=== PATIENT | female | born 1935 | race Caucasian/White ===

== ENCOUNTER 2017-09-21 13:36 | Emergency (ER) | payer MEDICARE, OTHER ==
[~2017-09-21] VITALS: Ht 170.2 cm; Wt 75.0 kg
[~2017-09-21 13:36] MED LIST: ATOR20TA PO; DIGO0.12 PO; LASI20TA PO; LISI2.5T55 PO; METO50TA PO; PERC5TAB12 PO; POTA20IN3 PO; RIVA20 PO
[2017-09-21 13:40] VITALS: BP 115/63; PULSE 72; RESP 16; TEMP 98.9; O2SAT 97
[2017-09-21] MEDS ORDERED: ASPI-516 CHEW (13:59)
[2017-09-21] MEDS ORDERED: LISI2.5T3 PO (13:59)
[2017-09-21] MEDS ORDERED: FURO40TA PO (13:59)
[2017-09-21] MEDS ORDERED: DIGO0.12 PO (13:59)
[2017-09-21] MEDS ORDERED: XARE10TA PO (13:59)
[2017-09-21] MEDS ORDERED: POTA-255 PO (13:59)
[2017-09-21] MEDS ORDERED: METO50TA PO (13:59)
--- NOTE | 2017-09-21 14:35 | PD ---
HPI Chief Complaint: Skin Problem Time Seen by Provider: 14:27 Travel History International Travel<30 days: No Contact w/Intl Traveler<30days: No Traveled to known affect area: No History of Present Illness HPI 82-year-old female presents emergency department with very painful vesicular rash which started on her right lower trunk and has spread around to her abdomen since yesterday morning. Patient states she never had chickenpox as a child, or the measles. She denies fever, cough, chills, or other symptoms. Her biggest complaint is pain which is 9 out of 10. She denies nausea or vomiting or abdominal pain. Patient has no known drug allergies. PFSH Past Medical History Hx Anticoagulant Therapy: Yes (XARELTO) Cancer: No Cardiovascular Problems: Yes Congestive Heart Failure: Yes Cerebrovascular Accident: Yes (2007) Diminished Hearing: No Endocrine: No Genitourinary: Yes Hypertension: Yes Immune Disorder: No Musculoskeletal: No Neurologic: Yes Psychiatric: No Reproductive: No Respiratory: Yes Menopausal: Yes Past Surgical History Other Surgery: No Social History Alcohol Use: Yes (SOCIAL) Tobacco Use: No Substance Use: No Allergies-Medications (Allergen,Severity, Reaction): Coded Allergies: No Known Allergies (Unverified , 05/25/15) Reported Meds & Prescriptions Reported Meds & Active Scripts Active Reported Xarelto (Rivaroxaban) 10 Mg Tab 10 Mg PO DAILY Aspirin 81 Mg Chew 81 Mg CHEW DAILY Metoprolol Tartrate 50 Mg Tab 50 Mg PO BID Lisinopril 2.5 Mg Tab 2.5 Mg PO DAILY Potassium (Potassium Gluconate) 600 Mg (99 Mg) Tablet 1 Tab PO HS Furosemide 40 Mg Tab 40 Mg PO DAILY Digoxin 0.125 Mg Tab 0.125 Mg PO DAILY Review of Systems Except as stated in HPI: all other systems reviewed are Neg General / Constitutional: No: Fever Eyes: No: Visual changes HENT: No: Headaches Cardiovascular: No: Chest Pain or Discomfort Respiratory: No: Shortness of Breath Gastrointestinal: No: Abdominal Pain Genitourinary: No: Dysuria Musculoskeletal: Positive: Pain Skin: Positive Rash Neurologic: No: Weakness Psychiatric: No: Depression Endocrine: No: Polydipsia Hematologic/Lymphatic: No: Easy Bruising Physical Exam Narrative GENERAL: Patient appears moderately uncomfortable. SKIN: Warm and dry. Generally the patient's skin is normal in color and turgor. Patient has angry erythematous vesicular rash in the T10 distribution wrapping around to the abdomen below the umbilicus. This is consistent with herpes zoster. There is no sign of bacterial cellulitis. HEAD: Atraumatic. Normocephalic. EYES: Pupils equal and round. No scleral icterus. No injection or drainage. ENT: No nasal bleeding or discharge. Mucous membranes pink and moist. TMs are clear. Pharynx is clear. Airways patent. NECK: Trachea midline. Supple and nontender. CARDIOVASCULAR: Regular rate and rhythm. RESPIRATORY: No accessory muscle use. Clear to auscultation. Breath sounds equal bilaterally. GASTROINTESTINAL: Abdomen soft, non-tender, nondistended. Hepatic and splenic margins not palpable. MUSCULOSKELETAL: Extremities without clubbing, cyanosis, or edema. No obvious deformities. NEUROLOGICAL: Awake and alert. No obvious cranial nerve deficits. Motor grossly within normal limits. Five out of 5 muscle strength in the arms and legs. Normal speech. PSYCHIATRIC: Appropriate mood and affect; insight and judgment normal. Data Data Last Documented VS Vital Signs Date Time Temp Pulse Resp B/P (MAP) Pulse Ox O2 Delivery O2 Flow Rate FiO2 09/21/17 13:40 98.9 72 16 115/63 (80) 97 MDM Medical Decision Making Medical Screen Exam Complete: Yes Emergency Medical Condition: Yes Differential Diagnosis Painful rash. Shingles. Cellulitis. Narrative Course Patient will be treated with Valtrex 1000 mg twice daily 7 days. Patient is placed on gabapentin 100 mg 3 times daily for 2 weeks. Patient is given Mapap 500 mg 2 tabs every 6 hours as needed pain #80. Patient can Place Caladryl lotion on the rash itself which may help soothe it. Patient should follow-up with her primary care physician to ensure improvement, or return to the emergency department if worsening symptoms develop Diagnosis Primary Impression: Shingles outbreak Qualified Codes: B02.9 - Zoster without complications Referrals: Primary Care Physician 1 week Patient Instructions: General Instructions, Shingles (ED) Med/Other Pt SpecificInfo: Prescription(s) given Disposition: 01 DISCHARGE HOME Condition: Stable Glenroy Newman Sep 21, 2017 14:35
[2017-09-21] MEDS ORDERED: GABA100C4 PO (14:37)
[2017-09-21] MEDS ORDERED: VALT1TAB PO (14:37)
[2017-09-21] MEDS ORDERED: MAPA500T13 PO (14:37)
== END 2017-09-21 14:50 | disposition home or self-care (01) ==
LOC: NEPK 13:36
DX: B02.9 Zoster without complications (principal); I11.0 Hypertensive heart disease with heart failure; I50.9 Heart failure, unspecified; Z79.01 Long term (current) use of anticoagulants
CPT/HCPCS: 99283

== ENCOUNTER 2017-10-15 12:46 | Emergency (ER) | payer MEDICARE, OTHER ==
[~2017-10-15] VITALS: Ht 170.2 cm; Wt 76.0 kg
[~2017-10-15 12:46] MED LIST changes: +ASPI-516 CHEW; -ATOR20TA PO; +FURO40TA PO; +GABA100C4 PO; -LASI20TA PO; +LISI2.5T3 PO; -LISI2.5T55 PO; +MAPA500T13 PO; -PERC5TAB12 PO; +POTA-255 PO; -POTA20IN3 PO; -RIVA20 PO; +VALT1TAB PO; +XARE10TA PO
[2017-10-15 13:01] VITALS: BP 125/59; PULSE 69; RESP 18; TEMP 97.5; O2SAT 96
[2017-10-15 13:30] LABS: AUTOMATED NEUTROPHIL # 3.9 TH/MM3 (1.8-7.7); BASOPHIL % 0.6 % (0.0-2.0); EOSINOPHIL # 0.1 TH/MM3 (0-0.4); EOSINOPHIL % 0.8 % (0.0-4.0); HEMATOCRIT 37.1 % (35.0-46.0); LYMPH % 28.9 % (9.0-44.0); LYMPHOCYTE # 1.8 TH/MM3 (1.0-4.8); MEAN CELL VOLUME 91.1 FL (80.0-100.0); MEAN CORPUSCULAR HEMOGLOBIN 31.9 PG (27.0-34.0); MEAN PLATELET VOLUME 8.2 FL (7.0-11.0); MONO % 8.1 % (0.0-8.0); MONOCYTE # 0.5 TH/MM3 (0-0.9); NEUT % 61.6 % (16.0-70.0); PLATELET COUNT 247 TH/MM3 (150-450); RED BLOOD COUNT 4.07 MIL/MM3 (4.00-5.30); WHITE BLOOD COUNT 6.4 TH/MM3 (4.0-11.0)
--- NOTE | 2017-10-15 13:45 | RADRPT ---
EXAM DATE/TIME: 10/15/2017 13:28 [facility] COMPARISON: CHEST SINGLE AP, May 25, 2015, 12:15. INDICATIONS : Shortness of breath for one day. MEDICAL HISTORY : None. SURGICAL HISTORY : CABG. ENCOUNTER: Initial ACUITY: 1 day PAIN SCORE: 0/10 LOCATION: Bilateral chest FINDINGS: Stable postsurgical features of median sternotomy and cardiac surgery. No new focal pleural or parenc hymal opacities. Cardiomediastinal contours are within normal limits. Bony thorax is intact. CONCLUSION: 1. No acute cardiopulmonary disease. Arsalan Montenegro MD on October 15, 2017 at 13:42 Board Certified Radiologist. This report was verified electronically.
[2017-10-15 13:48] LABS: BICARBONATE 23.5 MEQ/L (21.0-32.0); BLOOD UREA NITROGEN 19 MG/DL (7-18); CALCIUM 8.8 MG/DL (8.5-10.1); CHLORIDE 99 MEQ/L (98-107); CREATININE 1.17 MG/DL (0.50-1.00); GLOMERULAR FILTRATION RATE 44 ML/MIN (>89); GLUCOSE,RANDOM 102 MG/DL (74-106); SODIUM (NA) 132 MEQ/L (136-145)
[2017-10-15 13:52] LABS: TROPONIN I LESS THAN 0.02 NG/ML (0.02-0.05)
[2017-10-15 13:56] VITALS: BP 139/71; PULSE 72; RESP 22; O2SAT 100
--- NOTE | 2017-10-15 14:09 | PD ---
HPI Chief Complaint: Chest Pain Time Seen by Provider: 13:51 Travel History International Travel<30 days: No Contact w/Intl Traveler<30days: No Traveled to known affect area: No History of Present Illness HPI Patient is an 7-year-old female presenting to the emergency department for evaluation of chest pain. Patient states she woke up with a feeling of pins sticking into her chest wall. She reports feeling slightly short of breath, worse with exertion. She states she has been dealing with shingles for 1 month now, since then she has had a decreased appetite. She also reports feeling constipated having small, hard bowel movements over the last month. She took Ex -Lax last night and states she feels as if she has to go today. She denies any abdominal pain. Brother is present and states she has been worried about drinking water that could have been contaminated. He states that her fears are unfounded. PFSH Past Medical History Hx Anticoagulant Therapy: Yes (XARELTO) Atrial Fibrillation: Yes High Cholesterol: Yes Congestive Heart Failure: Yes Cerebrovascular Accident: Yes (2007) Genitourinary: Yes Hypertension: Yes Neurologic: Yes (tia) Respiratory: Yes Menopausal: Yes Past Surgical History Other Surgery: No Social History Alcohol Use: Yes (SOCIAL) Tobacco Use: No Substance Use: No Allergies-Medications (Allergen,Severity, Reaction): Coded Allergies: No Known Allergies (Unverified Adverse Reaction, Unknown, 10/15/17) Reported Meds & Prescriptions Reported Meds & Active Scripts Active Mapap Extra Strength (Acetaminophen) 500 Mg Tab 1,000 Mg PO Q4-6H PRN Gabapentin 100 Mg Cap 100 Mg PO TID 14 Days Reported Xarelto (Rivaroxaban) 10 Mg Tab 10 Mg PO DAILY Aspirin 81 Mg Chew 81 Mg CHEW DAILY Metoprolol Tartrate 50 Mg Tab 50 Mg PO BID Lisinopril 2.5 Mg Tab 2.5 Mg PO DAILY Potassium (Potassium Gluconate) 600 Mg (99 Mg) Tablet 1 Tab PO HS Furosemide 40 Mg Tab 40 Mg PO DAILY Digoxin 0.125 Mg Tab 0.125 Mg PO DAILY Review of Systems Except as stated in HPI: all other systems reviewed are Neg Cardiovascular: Positive: Chest Pain or Discomfort Respiratory: Positive: Shortness of Breath Gastrointestinal: Positive: Constipation Skin: Positive Rash Physical Exam Narrative GENERAL: Well-developed, well-nourished, alert elderly female. Presenting in no acute distress. SKIN: Warm and dry. Hyperpigmented, healing rash to right back around to abdomen, rash does not cross the midline. No vesicular lesions noted. HEAD: Atraumatic. Normocephalic. EYES: Pupils equal and round. No scleral icterus. No injection or drainage. ENT: No nasal bleeding or discharge. Mucous membranes pink and moist. NECK: Trachea midline. No JVD. CARDIOVASCULAR: Regular rate and rhythm. RESPIRATORY: No accessory muscle use. Clear to auscultation. Breath sounds equal bilaterally. GASTROINTESTINAL: Abdomen soft, non-tender, nondistended. Hepatic and splenic margins not palpable. Positive bowel sounds, no rebound, no guarding. MUSCULOSKELETAL: Extremities without clubbing, cyanosis, or edema. No obvious deformities. NEUROLOGICAL: Awake and alert. No obvious cranial nerve deficits. Motor grossly within normal limits. Five out of 5 muscle strength in the arms and legs. Normal speech. PSYCHIATRIC: Appropriate mood and affect; insight and judgment normal. Data Data Last Documented VS Vital Signs Date Time Temp Pulse Resp B/P (MAP) Pulse Ox O2 Delivery O2 Flow Rate FiO2 10/15/17 14:45 96 Room Air 10/15/17 13:56 72 22 10/15/17 13:01 97.5 Orders Orders Electrocardiogram (10/15/17 13:03) Complete Blood Count With Diff (10/15/17 13:03) Basic Metabolic Panel (Bmp) (10/15/17 13:03) Ckmb (Isoenzyme) Profile (10/15/17 13:03) Troponin I (10/15/17 13:03) Chest, Pa & Lat (10/15/17 ) B-Type Natriuretic Peptide (10/15/17 14:02) Digoxin (10/15/17 14:02) Abdomen, Kub Only (10/15/17 ) Ecg Monitoring (10/15/17 14:02) Oximetry (10/15/17 14:02) Sodium Chloride 0.9% Flush (Ns Flush) (10/15/17 14:15) Data Collection Interviewer / Telemetry [id number].[email or web address] (10/15/17 16:04) Vital Signs (Adult) Q4H (10/15/17 16:04) Activity Bed Rest (10/15/17 16:04) Notify Dr: Other (10/15/17 16:04) Labs Laboratory Tests Test 10/15/17 13:21 White Blood Count 6.4 TH/MM3 Red Blood Count 4.07 MIL/MM3 Hemoglobin 13.0 GM/DL Hematocrit 37.1 % Mean Corpuscular Volume 91.1 FL Mean Corpuscular Hemoglobin 31.9 PG Mean Corpuscular Hemoglobin Concent 35.0 % Red Cell Distribution Width 14.0 % Platelet Count 247 TH/MM3 Mean Platelet Volume 8.2 FL Neutrophils (%) (Auto) 61.6 % Lymphocytes (%) (Auto) 28.9 % Monocytes (%) (Auto) 8.1 % Eosinophils (%) (Auto) 0.8 % Basophils (%) (Auto) 0.6 % Neutrophils # (Auto) 3.9 TH/MM3 Lymphocytes # (Auto) 1.8 TH/MM3 Monocytes # (Auto) 0.5 TH/MM3 Eosinophils # (Auto) 0.1 TH/MM3 Basophils # (Auto) 0.0 TH/MM3 CBC Comment DIFF FINAL Differential Comment Blood Urea Nitrogen 19 MG/DL Creatinine 1.17 MG/DL Random Glucose 102 MG/DL Calcium Level 8.8 MG/DL Sodium Level 132 MEQ/L Potassium Level 4.1 MEQ/L Chloride Level 99 MEQ/L Carbon Dioxide Level 23.5 MEQ/L Anion Gap 10 MEQ/L Estimat Glomerular Filtration Rate 44 ML/MIN Total Creatine Kinase 53 U/L Troponin I LESS THAN 0.02 NG/ML B-Type Natriuretic Peptide 223 PG/ML Digoxin Level 0.8 NG/ML MDM Medical Decision Making Medical Screen Exam Complete: Yes Emergency Medical Condition: Yes Interpretation(s) Laboratory Tests Test 10/15/17 13:21 White Blood Count 6.4 TH/MM3 Red Blood Count 4.07 MIL/MM3 Hemoglobin 13.0 GM/DL Hematocrit 37.1 % Mean Corpuscular Volume 91.1 FL Mean Corpuscular Hemoglobin 31.9 PG Mean Corpuscular Hemoglobin Concent 35.0 % Red Cell Distribution Width 14.0 % Platelet Count 247 TH/MM3 Mean Platelet Volume 8.2 FL Neutrophils (%) (Auto) 61.6 % Lymphocytes (%) (Auto) 28.9 % Monocytes (%) (Auto) 8.1 % Eosinophils (%) (Auto) 0.8 % Basophils (%) (Auto) 0.6 % Neutrophils # (Auto) 3.9 TH/MM3 Lymphocytes # (Auto) 1.8 TH/MM3 Monocytes # (Auto) 0.5 TH/MM3 Eosinophils # (Auto) 0.1 TH/MM3 Basophils # (Auto) 0.0 TH/MM3 CBC Comment DIFF FINAL Differential Comment Blood Urea Nitrogen 19 MG/DL Creatinine 1.17 MG/DL Random Glucose 102 MG/DL Calcium Level 8.8 MG/DL Sodium Level 132 MEQ/L Potassium Level 4.1 MEQ/L Chloride Level 99 MEQ/L Carbon Dioxide Level 23.5 MEQ/L Anion Gap 10 MEQ/L Estimat Glomerular Filtration Rate 44 ML/MIN Total Creatine Kinase 53 U/L Troponin I LESS THAN 0.02 NG/ML B-Type Natriuretic Peptide 223 PG/ML Digoxin Level 0.8 NG/ML Vital Signs Date Time Temp Pulse Resp B/P (MAP) Pulse Ox O2 Delivery O2 Flow Rate FiO2 10/15/17 13:57 100 Room Air 10/15/17 13:56 72 22 139/71 (93) 100 Room Air 10/15/17 13:01 97.5 69 18 125/59 (81) 96 Differential Diagnosis ACS versus AMI versus metabolic abnormality versus anxiety versus constipation versus obstruction versus other Narrative Course Patient is an 82-year-old female presented to the emergency department with chest pain that started this morning upon awakening. She also reported that she is constipated. Patient's vital signs are stable, labs imaging ordered and pending. Initial EKG shows sinus rhythm with right bundle branch block. CBC with no acute findings, chemistry with no acute findings, cardiac enzymes negative 1 set. BNP is 223, digoxin 0.8. Chest x-ray shows no acute disease, KUB with nonobstructive bowel gas pattern. Due to patient's age and comorbidities, she will be admitted to the chest pain center. Patient was encouraged to trial MiraLAX daily, she was encouraged to increase oral fluid intake as well. Plan of care discussed my attending physician. Patient admit orders were placed. Discussed with patient, she stated that she did not want to be admitted because her insurance would not cover it. Patient was encouraged to stay to be completely evaluated. She continued to decline stay. Discussed with Dr. Todd who is patient's retail merchandiser technician, he stated that it she had 2 normal sets of enzymes at least 4 hours apart then she could follow- up in the office this week or early next week. Patient had a second set of cardiac enzymes which were negative, second EKG was reviewed and unchanged from prior. Patient was advised that she needs to follow-up with Dr. Todd. Her brother is at bedside and is aware of discharge instructions as well. She was encouraged to return immediately to the emergency department for any new or worsening symptoms. Patient is stable for discharge. Diagnosis Primary Impression: Chest pain Qualified Codes: R07.9 - Chest pain, unspecified Referrals: Gary Connell MD 2 days Call to schedule an appointment. Patient Instructions: Chest Pain (ED), General Instructions Additional Instructions: Follow-up with Dr. Todd in 2-3 days, call to schedule an appointment Return to emergency department immediately for any new or worsening symptoms Continue home medications as previously prescribed Med/Other Pt SpecificInfo: No Change to Meds Disposition: 01 DISCHARGE HOME Condition: Stable Gaviota Wagoner Faby LEPE Oct 15, 2017 14:09
[2017-10-15] MEDS ORDERED: SODIUM CHLORIDE 0.9% FLUSH 10 ML FLUSH IVF PRN (14:15)
[2017-10-15 14:45] VITALS: O2SAT 96
--- NOTE | 2017-10-15 14:51 | RADRPT ---
EXAM DATE/TIME: 10/15/2017 14:25 [facility] COMPARISON: No previous studies available for comparison. INDICATIONS : Abdominal distention. Evaluate for obstruction. MEDICAL HISTORY : Hypertension. Congestive heart failure. Cerebrovascular disease. TIA. Atrial fibrillation. SURGICAL HISTORY : CABG. ENCOUNTER: Initial ACUITY: 1 week PAIN SCORE: 4/10 LOCATION: Abdomen. FINDINGS: Supine view of the abdomen was performed. Air is seen throughout the colon. There no dilated loops of bowel. No significant pneumatosis or free air. No abnormal calcifications. The osseous structures ar e unremarkable. CONCLUSION: 1. Nonobstructive bowel gas pattern. Arsalan Montenegro MD on October 15, 2017 at 14:48 Board Certified Radiologist. This report was verified electronically.
[2017-10-15 18:32] LABS: TROPONIN I LESS THAN 0.02 NG/ML (0.02-0.05)
--- NOTE | 2017-10-16 14:04 | EKG ---
Date Performed: 10/15/2017 Time Performed: 17:31:52 PTAGE: 82 years EKG: Sinus rhythm RIGHT BUNDLE BRANCH BLOCK ANTERIOR MYOCARDIAL INFARCTION ABNORMAL ECG Since the PREVIOUS TRACING , no significant change noted PREVIOUS TRACIN10/15/2017 13.09 DOCTOR: Malgorzata Donnelly Interpretating Date/Time 10/16/2017 13:56:25
--- NOTE | 2017-10-16 14:05 | EKG ---
Date Performed: 10/15/2017 Time Performed: 13:09:38 PTAGE: 82 years EKG: Sinus rhythm MARKED RIGHT AXIS DEVIATION RIGHT BUNDLE BRANCH BLOCK ANTERIOR MYOCARDIAL INFARCTION ABNORMAL ECG Si nce the PREVIOUS TRACING , no significant change noted PREVIOUS TRACIN05/25/2015 12.00 DOCTOR: Malgorzata Donnelly Interpretating Date/Time 10/16/2017 13:56:32
== END 2017-10-15 19:27 | disposition home or self-care (01) ==
LOC: NEPE 12:46 → UNDOADMOB 16:05 → NEDA 16:05
DX: R07.9 Chest pain, unspecified (principal); K59.00 Constipation, unspecified; R06.02 Shortness of breath; I45.10 Unspecified right bundle-branch block; R94.31 Abnormal electrocardiogram [ECG] [EKG]; I48.91 Unspecified atrial fibrillation; I10 Essential (primary) hypertension; I50.9 Heart failure, unspecified; E78.00 Pure hypercholesterolemia, unspecified; Z79.01 Long term (current) use of anticoagulants; Z86.73 Personal history of transient ischemic attack (TIA), and cerebral infarction without residual deficits
CPT/HCPCS: 71046; 74018; 80048; 80162; 82550; 83880; 84484; 85025; 93005

== ENCOUNTER 2018-09-21 11:08 | Observation (INO) ==
--- NOTE | 2018-09-21 12:22 | ED ---
HPI General Chief complaint: Extremity Injury, Upper Stated complaint: shoulder pain Time Seen by Provider: 09/21/18 12:09 History of Present Illness HPI narrative: 83-year-old female with history of CHF, atrial fibrillation on Xarelto, hyperlipidemia, CVA, hypertension, presents with her brother for evaluation of syncopal event. The patient reports that yesterday evening she was walking in her hallway when she passed out. She woke up on the ground with right shoulder pain. Her primary complaint is right shoulder pain which is aching and worse with movement. She reports mild neck stiffness. She reports that she had 3 alcoholic beverages last night, uncertain if this has anything to do with her passing out. She is denying any headache, mid or lower back pain , chest pain, shortness of breath, abdominal pain, nausea, vomiting, dysuria. Her brother notes that she is chronically unsteady on her feet. She does not have a primary care physician. Her insulation cutter and former is Dr. Todd. No other complaints. Related Data Home Medications Medication Instructions Recorded Confirmed digoxin 0.125 mg PO DAILY 09/21/18 09/21/18 lisinopril 2.5 mg PO DAILY 09/21/18 09/21/18 metoprolol tartrate 50 mg PO BID 09/21/18 09/21/18 potassium chloride 20 meq PO DAILY 09/21/18 09/21/18 rivaroxaban [Xarelto] 20 mg PO DAILY 09/21/18 09/21/18 Allergies Allergy/AdvReac Type Severity Reaction Status Date / Time No Known Allergies Allergy Verified 09/21/18 11:29 Review of Systems ROS: all other systems reviewed are negative [facility] Medical History Medical History HBP (high blood pressure) (Acute) Hypokalemia (Acute) Surgical History Surgical History History of heart surgery (Acute) Social History Social History Substance History: No History of Abuse Second Hand Smoke Exposure: No Smoking Status: Never smoker How Often Do You Have a Drink Containing Alcohol: 2 to 4 times a month Recent Travel in [facility] within the Last 8 Weeks: No Recent Out of Country Travel within the Last 8 Weeks: No Immunization History Tetanus Immunization: >5 Years Exam Narrative Exam Narrative: GENERAL: Pleasant well-developed well-nourished female no acute distress SKIN: Warm and dry. HEAD: Atraumatic. Normocephalic. EYES: Pupils equal and round. No scleral icterus. No injection or drainage. ENT: No nasal bleeding or discharge. Mucous membranes pink and moist. NECK: Trachea midline. No JVD. CARDIOVASCULAR: Regular rate and rhythm. No murmur appreciated. RESPIRATORY: No accessory muscle use. Clear to auscultation. Breath sounds equal bilaterally. GASTROINTESTINAL: Abdomen soft, non-tender, nondistended. Hepatic and splenic margins not palpable. MUSCULOSKELETAL: Tender to palpation right shoulder joint with deformity. Range of motion is limited. No tenderness to palpation along the cervical thoracic or lumbar midline spine. NEUROLOGICAL: Awake and alert. No obvious cranial nerve deficits. Motor grossly within normal limits. Normal speech. Procedures Orthopedic Joint Reduction Joint #1: Time Out Performed: Yes Side: right Joint Reduction Location: shoulder Analgesia: procedural sedation Shoulder Technique Used (if applicable): traction/counter-traction Post-Reduction Neuro Exam: intact Post-Reduction Vascular Exam: intact Post Reduction X-Ray Obtained: Yes Post Reduction X-Ray Results: reduced Splint Applied: Yes Procedural Sedation Indications: fracture/dislocation reduction ASA Class: ASA 2 Moderate Systemic Disease Preparation: veneer production machine operator applied, pulse oximeter, capnometry used, supplemental O2 applied, reversal agents at bedside, suction/airway equipment at bedside and IV secured IV Propofol Dose (mgs): 100 Patient Tolerated Procedure: well Complications: none Course Initial Documented Vital Signs Temperature 98.0 F 09/21/18 11:17 Pulse Rate 92 H 09/21/18 11:17 Respiratory Rate 18 09/21/18 11:17 Blood Pressure 214/99 H 09/21/18 11:17 Pulse Oximetry 99 09/21/18 11:17 Last Documented Vital Signs Temperature 98.0 F 09/21/18 11:17 Pulse Rate 81 09/21/18 14:20 Respiratory Rate 14 09/21/18 14:20 Blood Pressure 152/80 H 09/21/18 14:20 Pulse Oximetry 98 09/21/18 14:20 Medical Decision Making BETO Attestation BETO supervised visit: Yes Attestation: I, Dr. Dale, have reviewed the advance practice practitioner's documentation and am in agreement, met with the patient face to face, made the diagnosis, and the medical decision making was done by me. *My assessment and Findings: This patient presents following a fall due to a syncopal event. She has a dislocation of her right shoulder. She is an ASA class II patient for anesthesia. Mallampatti score is 2. She will be sedated with propofol for reduction. [facility] Narrative Medical decision making narrative: The patient was placed on ECG monitoring pulse oximetry. A 12-lead EKG was obtained. Lab work, chest x-ray, right shoulder x-ray, CT imaging of the brain, cervical spine ordered. The patient was given 4 mg of morphine and 4 mg of Zofran. X-ray of the right shoulder reveals dislocated shoulder with Hill-Sachs lesion. Procedural sedation, reduction was performed, see company procedural notes. Postreduction x-ray reveals successful reduction of the shoulder. Sling and swath was applied. The patient's lab work reveals a total CK of 638, sodium of 131 and a chloride of 96. Patient has a history of congestive heart failure, she will be fluid replenished very slowly, 250 mL normal saline administered here. The patient will be admitted for further evaluation of her syncopal event. Discussed with Dr. Landers. Medical Screen Exam Complete: Yes Emergency Medical Condition: Yes Differential Diagnosis Differential Diagnosis: Arrhythmia, syncope, electrolyte abnormality, hypoglycemia, seizure, closed head injury, shoulder fracture, dislocation Lab Data Result diagrams: 09/21/18 12:30 09/21/18 12:30 Lab Results 09/21/18 09/21/18 09/21/18 Range/Units 12:30 12:30 12:30 WBC 10.6 (4.0-11.0) th/mm3 RBC 3.93 L (4.00-5.30) mil/mm3 Hgb 12.5 (11.6-15.3) gm/dL Hct 36.0 (35.0-46.0) % MCV 91.5 (80.0-100.0) fL MCH 31.8 (27.0-34.0) pg MCHC 34.8 (32.0-36.0) % RDW 13.7 (11.6-17.2) % Plt Count 211 (150-450) th/mm3 MPV 8.9 (7.0-11.0) fL Neut % (Auto) 86.9 H (16.0-70.0) % Lymph % (Auto) 5.2 L (9.0-44.0) % [place] % (Auto) 7.7 (0.0-8.0) % Eos % (Auto) 0.0 (0.0-4.0) % Baso % (Auto) 0.2 (0.0-2.0) % Neut # (Auto) 9.2 H (1.8-7.7) th/mm3 Lymph # (Auto) 0.5 L (1.0-4.8) th/mm3 [place] # (Auto) 0.8 (0.0-0.9) th/mm3 Eos # (Auto) 0.0 (0.0-0.4) th/mm3 Baso # (Auto) 0.0 (0.0-0.2) th/mm3 WBC Differential . Differential Comment Auto diff final PT 12.0 H (9.8-11.6) sec INR 1.2 Ratio APTT 30.8 (23.4-31.7) sec Sodium 131 L (136-145) meq/L Potassium 4.1 (3.5-5.1) meq/L Chloride 96 L (98-107) meq/L Carbon Dioxide 25.9 (21.0-32.0) meq/L Anion Gap 9 (5-15) meq/L BUN 20 H (7-18) mg/dL Creatinine 0.93 (0.50-1.00) mg/dL Estimated GFR 57 L (>89) mL/min Random Glucose 111 H (74-106) mg/dL Calcium 8.5 (8.5-10.1) mg/dL Magnesium 1.9 (1.5-2.5) mg/dL Total Creatine Kinase 638 H (26-192) U/L CK-MB (CK-2) 5.1 H (0.5-3.6) ng/mL CK-MB (CK-2) % 0.8 (0.0-4.0) % Troponin I Less than 0.02 L (0.02-0.05) ng/mL Digoxin (0.8-2.0) ng/mL 09/21/18 Range/Units 12:30 WBC (4.0-11.0) th/mm3 RBC (4.00-5.30) mil/mm3 Hgb (11.6-15.3) gm/dL Hct (35.0-46.0) % MCV (80.0-100.0) fL MCH (27.0-34.0) pg MCHC (32.0-36.0) % RDW (11.6-17.2) % Plt Count (150-450) th/mm3 MPV (7.0-11.0) fL Neut % (Auto) (16.0-70.0) % Lymph % (Auto) (9.0-44.0) % [place] % (Auto) (0.0-8.0) % Eos % (Auto) (0.0-4.0) % Baso % (Auto) (0.0-2.0) % Neut # (Auto) (1.8-7.7) th/mm3 Lymph # (Auto) (1.0-4.8) th/mm3 [place] # (Auto) (0.0-0.9) th/mm3 Eos # (Auto) (0.0-0.4) th/mm3 Baso # (Auto) (0.0-0.2) th/mm3 WBC Differential Differential Comment PT (9.8-11.6) sec INR Ratio APTT (23.4-31.7) sec Sodium (136-145) meq/L Potassium (3.5-5.1) meq/L Chloride (98-107) meq/L Carbon Dioxide (21.0-32.0) meq/L Anion Gap (5-15) meq/L BUN (7-18) mg/dL Creatinine (0.50-1.00) mg/dL Estimated GFR (>89) mL/min Random Glucose (74-106) mg/dL Calcium (8.5-10.1) mg/dL Magnesium (1.5-2.5) mg/dL Total Creatine Kinase (26-192) U/L CK-MB (CK-2) (0.5-3.6) ng/mL CK-MB (CK-2) % (0.0-4.0) % Troponin I (0.02-0.05) ng/mL Digoxin 0.7 L (0.8-2.0) ng/mL Imaging Data Radiologist's impression: Cervical Spine CT 09/21/18 12:18 CONCLUSION: 1. Degenerative changes without fracture. 2. Controlled flexion-extension films may be of benefit given the amount of degenerative changes to exclude instability. Chest X-Ray 09/21/18 12:18 CONCLUSION: 1. No evidence of acute cardiopulmonary disease. 2. Dislocated right glenohumeral joint. Head CT 09/21/18 12:18 CONCLUSION: 1. Negative for acute traumatic injury. . . Shoulder X-Ray 09/21/18 12:18 CONCLUSION: Anteriorly dislocated glenohumeral joint. Shoulder X-Ray 09/21/18 14:09 CONCLUSION: Anatomic alignment. ECG Data EKG Prior to Arrival: No Attestation: I personally reviewed and interpreted this ECG as follows: (EKG shows a sinus rhythm with a rate of 84. Right bundle branch block. No acute change in comparison to previous.) Prior ECG tracings: available for review Discharge Plan Discharge Disposition Patient Disposition: ED Admit(ED Internal Use Only) Discharge Condition Condition: Stable Discharge Order Discharge Orders: ED Use Only Admit Order (Routine); Ordered 09/21/18 Ordered By: Romaine Crandall Discharge Details Diagnosis: Syncope, Dislocation of shoulder Physicians Team ED Provider: Megan Dale ED Midlevel Provider: Romaine Crandall Primary Care Provider: Primary Care Umm Friend Attending Provider: Luis Landers Status ED Status: Admitted Observation Patient
[2018-09-21] MEDS ORDERED: Morphine Inj 4 MG/ML Vial IV.PUSH ONE (13:06)
[2018-09-21 13:22] LABS: Baso % (Auto) 0.2 % (0.0-2.0); Hemoglobin 12.5 gm/dL (11.6-15.3); Lymph # (Auto) 0.5 th/mm3 (1.0-4.8); Lymph % (Auto) 5.2 % (9.0-44.0); Mean Corpuscular HGB Conc 34.8 % (32.0-36.0); Mean Corpuscular Hemoglobin 31.8 pg (27.0-34.0); Mean Corpuscular Volume 91.5 fL (80.0-100.0); Mean Platelet Volume 8.9 fL (7.0-11.0); Mono # (Auto) 0.8 th/mm3 (0.0-0.9); Mono % (Auto) 7.7 % (0.0-8.0); Neut # (Auto) 9.2 th/mm3 (1.8-7.7); Neut % (Auto) 86.9 % (16.0-70.0); Platelet Count 211 th/mm3 (150-450); Red Blood Count 3.93 mil/mm3 (4.00-5.30); Red Cell Distribution Width 13.7 % (11.6-17.2); White Blood Count 10.6 th/mm3 (4.0-11.0)
[2018-09-21 13:29] LABS: Activated Partial Thrombo Time 30.8 sec (23.4-31.7); INR 1.2 Ratio
[2018-09-21 13:31] LABS: Anion Gap 9 meq/L (5-15); Blood Urea Nitrogen 20 mg/dL (7-18); Calcium 8.5 mg/dL (8.5-10.1); Carbon Dioxide 25.9 meq/L (21.0-32.0); Chloride 96 meq/L (98-107); Glomerular Filtration Rate 57 mL/min (>89); Glucose,Random 111 mg/dL (74-106); Magnesium 1.9 mg/dL (1.5-2.5); Potassium 4.1 meq/L (3.5-5.1); Sodium 131 meq/L (136-145)
[2018-09-21 13:35] LABS: Creatine Kinase 638 U/L (26-192)
[2018-09-21 13:47] LABS: CKMB Percent 0.8 % (0.0-4.0); Creatine Kinase MB 5.1 ng/mL (0.5-3.6)
--- NOTE | 2018-09-21 13:48 | XR ---
EXAM DATE: 09/21/2018 1:07 PM EST AGE/SEX: 83 years / Female INDICATIONS: Chest pain. CLINICAL DATA: This is the patient's initial encounter. Patient reports that signs and symptoms have been present for 1 day and indicates a pain score of 1/10. MEDICAL/SURGICAL HISTORY: None. CABG. COMPARISON: [facility], CHEST PA & LAT, 10/15/2017. [facility], CHEST SINGLE AP, 05/25/2015. . FINDINGS: No infiltrate, effusion or pneumothorax. Heart size stable, within normal limits. Median sternotomy and CABG changes are again noted. The right glenohumeral joint is anteriorly dislocated. CONCLUSION: 1. No evidence of acute cardiopulmonary disease. 2. Dislocated right glenohumeral joint. Electronically signed by: López Kilgore MD Board Certified Radiologist 09/21/2018 1:47 PM EST
--- NOTE | 2018-09-21 13:50 | XR ---
EXAM DATE: 09/21/2018 1:08 PM EST AGE/SEX: 83 years / Female INDICATIONS: Right shoulder pain after fall. CLINICAL DATA: This is the patient's initial encounter. Patient reports that signs and symptoms have been present for 1 day and indicates a pain score of 10/10. MEDICAL/SURGICAL HISTORY: None. None. COMPARISON: No prior exams available for comparison. FINDINGS: The glenohumeral joint is anteriorly dislocated. There does appear to be some flattening posterior la terally of the humeral head typical of a Hill-Sachs lesion. I don't see a displaced fracture. Bony al ignment is otherwise normal. CONCLUSION: Anteriorly dislocated glenohumeral joint. Electronically signed by: López Kilgore MD Board Certified Radiologist 09/21/2018 1:49 PM EST
--- NOTE | 2018-09-21 14:38 | XR ---
EXAM DATE: 09/21/2018 2:31 PM EST AGE/SEX: 83 years / Female INDICATIONS: Post reduction. CLINICAL DATA: This is the patient's subsequent encounter. Patient reports that signs and symptoms h ave been present for 1 day and indicates a pain score of 3/10. MEDICAL/SURGICAL HISTORY: None. None. COMPARISON: [facility], SHOULDER LIMITED RIGHT 2V, 09/21/2018. . FINDINGS: Anatomic alignment about the glenohumeral joint without fracture. CONCLUSION: Anatomic alignment. Electronically signed by: Donnie Lawrence MD Board Certified Radiologist 09/21/2018 2:36 PM EST
--- NOTE | 2018-09-21 15:22 | CT ---
EXAM DATE: 09/21/2018 3:18 PM EST AGE/SEX: 83 years / Female INDICATIONS: Fall last night having right shoulder pain. CLINICAL DATA: This is the patient's initial encounter. Patient reports that signs and symptoms have been present for 1 day and indicates a pain score of 10/10. MEDICAL/SURGICAL HISTORY: . Hypokalemia . Heart surgery RADIATION DOSE: 16.88 CTDI (mGy) COMPARISON: No prior exams available for comparison. TECHNIQUE: Contiguous axial images were obtained using helical multirow detector technique. The vol umetric data was post-processed with multiplanar reconstruction in oblique axial, sagittal, and coron al planes. Using automated exposure control and adjustment of the mA and/or kV according to patient s ize, radiation dose was kept as low as reasonably achievable to obtain optimal diagnostic quality tete ges. DICOM format image data is available electronically for review and comparison. FINDINGS: Vertebrae: Normal vertebral body height. Alignment: Normal. No subluxation. C1-C2: Degenerative changes evident without fracture. C2-3: The bony spinal canal is normal in size. No evidence of disc bulge or herniation. The neural foramina are bilaterally patent. C3-4: Mild disc bulging with minimal right-sided neural foraminal encroachment. C4-5: Moderate uncinate ridging with minimal bilateral neural foraminal encroachment. C5-6: Moderate uncinate ridging with left-sided neural foraminal encroachment. There is no significa nt spinal stenosis. C6-7: Mild uncinate ridging with minimal bilateral neural foraminal encroachment. C7-T1: The bony spinal canal is normal in size. No evidence of disc bulge or herniation. The neura l foramina are bilaterally patent. Moderate emphysematous changes in both lung apices. CONCLUSION: 1. Degenerative changes without fracture. 2. Controlled flexion-extension films may be of benefit given the amount of degenerative changes to exclude instability. Electronically signed by: Donnie Lawrence MD Board Certified Radiologist 09/21/2018 3:21 PM EST
--- NOTE | 2018-09-21 15:31 | CT ---
EXAM DATE: 09/21/2018 3:19 PM EST AGE/SEX: 83 years / Female INDICATIONS: Fall last night now having right shoulder pain. CLINICAL DATA: This is the patient's initial encounter. Patient reports that signs and symptoms have been present for 1 day and indicates a pain score of 10/10. MEDICAL/SURGICAL HISTORY: . hypokalemia . Heart surgery RADIATION DOSE: 31.06 CTDI (mGy) COMPARISON: [facility], CT BRAIN W/O CONTRAST, 09/05/2012. . TECHNIQUE: CT of the head without contrast. Using automated exposure control and adjustment of the mA and/or kV according to patient size, radiation dose was kept as low as reasonably achievable to ob tain optimal diagnostic quality images. DICOM format image data is available electronically for revi ew and comparison. FINDINGS: Cerebrum: . The ventricles are normal for age. No evidence of midline shift, mass lesion, hemorrhag e or acute infarction. No extraaxial fluid collections are seen. Minimal basal ganglia calcification s are evident. Posterior Fossa: The cerebellum and brainstem are intact. The 4th ventricle is midline. The cerebe llopontine angle is unremarkable. Extracranial: The visualized portion of the orbits is intact. Skull: The calvaria is intact. No evidence of skull fracture. CONCLUSION: 1. Negative for acute traumatic injury. . . Electronically signed by: Donnie Lawrence MD Board Certified Radiologist 09/21/2018 3:30 PM EST
[2018-09-21] MEDS ORDERED: Sodium Chlor 0.9% Inj 250 ML IV.SIG SCH (16:00)
[2018-09-21] MEDS ORDERED: Bisacodyl 10 MG Supp RECTAL PRN (16:01)
[2018-09-21] MEDS ORDERED: Naloxone Inj 0.4 MG/ML Vial IV.PUSH PRN (16:06)
[2018-09-21] MEDS ORDERED: Acetaminophen 325 MG Tablet PO PRN ×2 (16:06→17:00)
[2018-09-21] MEDS: Sod Chloride 0.9% Inj 1,000 ML IV.CONT SCH (17:10)
--- NOTE | 2018-09-21 17:15 | P.HPIM ---
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 She was found to have a right shoulder dislocation and was reduced in the emergency room. She stated that she drank 3 alcoholic drinks yesterday which is unusual for her and was unsure if this contributed to her passing out spell. She reports the syncope episode was not witnessed. She does not know how long she was down. She denies any palpitations, dizziness, chest pain prior to the episode. She did not have any bladder or bowel incontinence. When she came to she was not confused. Due to the persistent right shoulder pain she came into the emergency room today for evaluation. She reports she takes anticoagulation Xarelto for her history of atrial fibrillation. She sees Dr. Todd and stated she had a nuclear stress test back in July that was normal. She reports having previous open heart surgery and states that the surgeon cannot fix a " valve problem" that she has. She cannot tell me the definitive valvular problems she has. Diagnosis (1) Syncope: Review of Systems Constitutional: Reports as per HPI, Denies chills, Reports fatigue, Denies fever (s) and Denies headache(s) Eyes: Denies blurry vision, Denies change in vision and Denies eye pain Ears, Nose, Mouth, and Throat: Denies abnormal hearing, Denies headache(s), Denies mouth pain, Denies nasal congestion, Denies neck pain and Denies sore throat Cardiovascular: Denies chest pain, Denies diaphoresis, Reports syncope, Reports pedal edema, Reports leg edema, Denies lightheadedness, Denies palpitations, Denies dyspnea, Denies orthopnea and Denies paroxysmal nocturnal dyspnea Respiratory: Denies cough and Denies dyspnea Gastrointestinal: Denies abdominal pain, Denies constipation, Denies loose stools, Denies nausea and Denies vomiting Musculoskeletal: Denies back pain, Denies myalgias, Denies arthralgias, Denies neck pain and Denies numbness Skin/Breast: Denies new lesions and Denies rash Neurologic: Reports as per HPI, Denies abnormal hearing, Denies dizziness, Reports syncope, Denies frequent falls, Denies headache(s), Denies focal weakness, Denies memory loss, Denies numbness, Denies seizure-like activity, Reports paresthesias and Denies tremor(s) Psychiatric: Denies anxiety, Denies depression and Denies memory loss Endocrine: Denies cold intolerance, Denies heat intolerance and Denies palpitations Hematologic/Lymphatic: Denies easy bleeding and Reports easy bruising [facility] Medical History Medical History Hypokalemia (Acute) Atrial fibrillation (Chronic) CAD (coronary artery disease) (Chronic) CVA (cerebral vascular accident) (Chronic) HBP (high blood pressure) (Chronic) Systolic CHF (Chronic) Surgical History Surgical History Hx of CABG (Chronic) Family History Family History Father Heart disease Mother Heart disease Social History Social History Substance History: No History of Abuse Second Hand Smoke Exposure: No Smoking Status: Never smoker How Often Do You Have a Drink Containing Alcohol: 2 to 4 times a month Recent Travel in [facility] within the Last 8 Weeks: No Recent Out of Country Travel within the Last 8 Weeks: No Immunization History Tetanus Immunization: >5 Years Medications and Allergies Allergies Allergy/AdvReac Type Severity Reaction Status Date / Time No Known Allergies Allergy Verified 09/21/18 11:29 Home Medications Medication Instructions Recorded Confirmed Type digoxin 0.125 mg PO DAILY 09/21/18 09/21/18 History lisinopril 2.5 mg PO DAILY 09/21/18 09/21/18 History metoprolol tartrate 50 mg PO BID 09/21/18 09/21/18 History potassium chloride 20 meq PO DAILY 09/21/18 09/21/18 History rivaroxaban [Xarelto] 20 mg PO DAILY 09/21/18 09/21/18 History Active Medications: Active Medications Acetaminophen (Tylenol) 650 mg PO Q4H PRN PRN Reason: Temp > 100.4 Acetaminophen (Tylenol) 650 mg PO Q6HR PRN PRN Reason: PAIN SCALE 1 TO 5 Al Hydroxide/Mg Hydroxide (Milk Of Magnesia Liq) 30 ml PO Q12H PRN PRN Reason: Mild Constipation Bisacodyl (Dulcolax Supp) 10 mg RECTAL DAILY PRN PRN Reason: SEVERE CONSITIPATION Digoxin (Lanoxin) 125 mcg PO DAILY INDIRA Enalaprilat (Vasotec Inj) 1.25 mg IV.PUSH Q6H PRN PRN Reason: SEE LABEL COMMENTS Sodium Chloride (Ns Inj) 1,000 mls @ 42 mls/hr IV.CONT .[id number] [facility] Lactulose (Lactulose Liq) 30 ml PO DAILY PRN PRN Reason: SEVERE CONSITIPATION Lisinopril (Prinivil) 2.5 mg PO DAILY [facility] Metoprolol Tartrate (Lopressor) 50 mg PO BID [facility] Miscellaneous (Pill Splitter) 1 each OTHER UNSCH PRN PRN Reason: PILL SPLITTER Naloxone HCl (Narcan Inj) 0.4 mg IV.PUSH UNSCH PRN PRN Reason: SEE LABEL COMMENTS Ondansetron HCl (Zofran Inj) 4 mg IV.PUSH Q6H PRN PRN Reason: NAUSEA OR VOMITING Potassium Chloride (Kcl Powder) 20 meq PO DAILY [facility] Rivaroxaban (Xarelto) 15 mg PO DAILY [facility] Sennosides (Senokot) 17.2 mg PO Q12H PRN PRN Reason: Moderate Constipation Sodium Chloride (Ns Flush) 2 ml IV.FLUSH BID [facility] Sodium Chloride (Ns Flush) 2 ml IV.FLUSH PRN PRN PRN Reason: FLUSH AFTER USING IV ACCESS Tramadol HCl (Ultram) 50 mg PO Q4H PRN PRN Reason: PAIN SCALE 6 TO 10 Physical Exam Vital signs: Vital Signs 09/21/18 11:17 09/21/18 11:45 09/21/18 12:18 Temperature 98.0 F Pulse Rate 92 H 87 Respiratory Rate 18 14 Blood Pressure 214/99 H 181/88 H Pulse Oximetry 99 99 98 09/21/18 14:17 09/21/18 14:20 Temperature Pulse Rate 81 Respiratory Rate 14 Blood Pressure 152/80 H Pulse Oximetry 99 98 Intake & Output 09/20/18 09/21/18 09/21/18 18:59 06:59 18:59 Weight 70.307 kg Narrative: GENERAL: Well-nourished well-developed pleasant female sitting up in stretcher bed in the emergency room SKIN: Warm and dry. HEAD: Atraumatic. Normocephalic. EYES: Pupils equal and round. No scleral icterus. No injection or drainage. ENT: No nasal bleeding or discharge. Mucous membranes pink and moist. NECK: Trachea midline. No JVD. CARDIOVASCULAR: Regular rate and rhythm with a 3 out of 6 systolic ejection murmur. RESPIRATORY: No accessory muscle use. Relatively clear to auscultation. Breath sounds equal bilaterally. GASTROINTESTINAL: Abdomen soft, non-tender, nondistended. Hepatic and splenic margins not palpable. MUSCULOSKELETAL: Extremities without clubbing, cyanosis, 1+ edema right shoulder in the sling and swath NEUROLOGICAL: Awake and alert to person place and time. No obvious cranial nerve deficits. Motor grossly within normal limits. Five out of 5 muscle strength in the legs. Right shoulder stabilized in a sling with arm and hands neurovascularly intact ;normal speech. PSYCHIATRIC: Appropriate mood and affect; insight and judgment normal. Results Labs CBC & Chem 7: 09/21/18 12:30 09/21/18 12:30 Imaging Impressions Cervical Spine CT 09/21/18 12:18 CONCLUSION: 1. Degenerative changes without fracture. 2. Controlled flexion-extension films may be of benefit given the amount of degenerative changes to exclude instability. Chest X-Ray 09/21/18 12:18 CONCLUSION: 1. No evidence of acute cardiopulmonary disease. 2. Dislocated right glenohumeral joint. Head CT 09/21/18 12:18 CONCLUSION: 1. Negative for acute traumatic injury. . . Shoulder X-Ray 09/21/18 12:18 CONCLUSION: Anteriorly dislocated glenohumeral joint. Shoulder X-Ray 09/21/18 14:09 CONCLUSION: Anatomic alignment. ECG Attestation: I personally reviewed and interpreted this ECG as follows: Interpretation: Normal sinus rhythm with heart rate 84, right bundle branch block Caprini VTE Risk Assessment Caprini VTE Risk Assessment: Moderate/High Risk (score >= 2) Caprini Risk Assessment Model: Point Value = 1 Point Value = 2 Point Value = 3 Point Value = 5 Age 41-60 Minor surgery BMI > 25 kg/m2 Swollen legs Varicose veins or History of unexplained or recurrent spontaneous Oral contraceptives or hormone replacement Sepsis (< 1 month) Serious lung disease, including pneumonia (< 1 month) Abnormal pulmonary function Acute myocardial infarction Congestive heart failure (< 1 month) History of inflammatory bowel disease Medical patient at bed rest Age 61-74 Arthroscopic surgery Major open surgery (> 45 min) Laparoscopic surgery (> 45 min) Malignancy Confined to bed (> 72 hours) Immobilizing plaster cast Central venous access Age >= 75 History of VTE Family history of VTE Factor V Leiden Prothrombin [id number] Lupus anticoagulant Anticardiolipin antibodies Elevated serum homocysteine Heparin-induced thrombocytopenia Other congenital or acquired thrombophilia Stroke (< 1 month) Elective arthroplasty Hip, pelvis, or leg fracture Acute spinal cord injury (< 1 month) Prophylaxis Regimen: Total Risk Factor Score Risk Level Prophylaxis Regimen 0-1 Low Early ambulation 2 Moderate Order ONE of the following: *Sequential Compression Device (SCD) *Heparin 5000 units SQ BID 3-4 Higher Order ONE of the following medications: *Heparin 5000 units SQ TID *Enoxaparin/Lovenox 40 mg SQ daily (WT < 150 kg, CrCl > 30 mL/min) *Enoxaparin/Lovenox 30 mg SQ daily (WT < 150 kg, CrCl > 10-29 mL/min) *Enoxaparin/Lovenox 30 mg SQ BID (WT < 150 kg, CrCl > 30 mL/min) AND/OR *Sequential Compression Device (SCD) 5 or more Highest Order ONE of the following medications: *Heparin 5000 units SQ TID (Preferred with Epidurals) *Enoxaparin/Lovenox 40 mg SQ daily (WT < 150 kg, CrCl > 30 mL/min) *Enoxaparin/Lovenox 30 mg SQ daily (WT < 150 kg, CrCl > 10-29 mL/min) *Enoxaparin/Lovenox 30 mg SQ BID (WT < 150 kg, CrCl > 30 mL/min) AND *Sequential Compression Device (SCD) Assessment and Plan (1) Syncope: Code(s): R55 - Syncope and collapse Status: Acute Plan 83-year-old white female with a history of chronic systolic congestive heart failure, paroxysmal atrial fibrillation, hypertension presents to the emergency room with right shoulder pain after syncope episode 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 Gentle hydration due to mildly elevated CPK due to fall. Recent alcohol usepatient reports she does not drink alcohol on daily basis, possible contribution to syncope episode however will continue workup. Paroxysmal atrial fibrillation currently normal sinus rhythmcontinue digoxin, metoprolol and Xarelto History of chronic systolic congestive heart failure not in exacerbation. Continue with metoprolol, lisinopril, potassium, monitor intake and output ; cautious with hydration Right shoulder dislocation status post reduction in emergency roomcontinue with toan, follow with orthopedic surgery as an outpatient. Continue pain control. Hypertensionresume lisinopril, metoprolol DVT prophylaxisXarelto PT consultation evaluate gait and balance _ (1) Syncope Qualifiers: Encounter type: Syncope type:
--- NOTE | 2018-09-21 18:39 | US ---
EXAM DATE: 09/21/2018 6:34 PM EST AGE/SEX: 83 years / Female INDICATIONS: Syncope. CLINICAL DATA: This is the patient's initial encounter. Patient reports that signs and symptoms have been present for 1 day and indicates a pain score of 0/10. MEDICAL/SURGICAL HISTORY: Hypertension. Hypokalemia. . Heart surgery. COMPARISON: No prior exams available for comparison. VELOCITY PARAMETERS: ICA/CCA Ratio: Right 1.5 , Left 1.1 ICA: Right 166.1 cm/sec, Left 135.1 cm/sec CCA: Right 114.0 cm/sec, Left 121.3 cm/sec ECA: Right 188.4 cm/sec, Left 125.3 cm/sec Vertebral: Right 99.5 cm/sec antegrade, Left 109.2 cm/sec antegrade FINDINGS: Right Carotid: Moderate arteriosclerotic plaque is visualized.The waveforms are within normal limits . Left Carotid: Moderate arteriosclerotic plaque is visualized. The waveforms are within normal limits . Other: None. CONCLUSION: Moderate plaque in the carotid arteries bilaterally without evidence for hemodynamically significant stenosis. Electronically signed by: Nathaniel Mcclellan MD Board Certified Radiologist 09/21/2018 6:38 PM EST
[2018-09-21] MEDS: Metoprolol Tartrate 50 MG Tablet PO SCH (20:36)
[2018-09-22 00:06] LABS: Bilirubin,Urine Negative (Negative); Clarity,Urine Clear (Clear); Color,Urine Yellow (Yellw/Straw); Glucose,Urine (UA) Negative (Negative); Leukocyte Esterase,Urine Negative (Negative); Mucus,Urine Few /lpf (Occasional); Nitrite,Urine Negative (Negative)
[2018-09-22 08:15] LABS: Carbon Dioxide 26.4 meq/L (21.0-32.0); Potassium 4.1 meq/L (3.5-5.1)
[2018-09-22] MEDS ORDERED: Potassium Chloride 20 MEQ Pwd Pkt PO SCH (09:00)
[2018-09-22] MEDS ORDERED: Lisinopril 5 MG Tablet PO SCH ×2 (09:00)
[2018-09-22 09:18] LABS: CKMB Percent 0.4 % (0.0-4.0); Creatine Kinase MB 2.6 ng/mL (0.5-3.6)
[2018-09-22] MEDS: Digoxin 125 MCG Tablet PO SCH (09:43)
[2018-09-22] MEDS: Metoprolol Tartrate 50 MG Tablet PO SCH ×2 (09:43→20:08)
[2018-09-22] MEDS: Rivaroxaban 15 MG Tablet PO SCH (09:43)
--- NOTE | 2018-09-22 11:03 | P.PNIM ---
Subjective Interval history: Follow-up for syncope, alcohol intoxication, shoulder dislocation. Patient reports feeling much better today. She states her right shoulder pain has improved. She does report some associated weakness of the right shoulder, unable to lift her arm above her head. She denies any lightheadedness, dizziness, chest pain, palpitations, shortness of breath, or abdominal complaints. Patient wants to go home. She believes her syncopal episode was related to having 3 alcoholic beverages which is unusual for her. She lives alone with her dog. Physical Exam Vital signs: Vital Signs 09/21/18 11:17 09/21/18 11:45 09/21/18 12:18 Temperature 98.0 F Pulse Rate 92 H 87 Respiratory Rate 18 14 Blood Pressure 214/99 H 181/88 H Pulse Oximetry 99 99 98 09/21/18 14:17 09/21/18 14:20 09/21/18 17:42 Temperature Pulse Rate 81 89 Respiratory Rate 14 16 Blood Pressure 152/80 H 176/82 H Pulse Oximetry 99 98 100 09/21/18 20:00 09/21/18 20:06 09/21/18 23:23 Temperature 98.6 F Pulse Rate 82 74 64 Respiratory Rate 14 18 Blood Pressure 172/75 H 160/77 H Pulse Oximetry 96 96 09/22/18 00:00 09/22/18 03:45 09/22/18 07:15 Temperature 98.5 F 99.0 F Pulse Rate 65 69 70 Respiratory Rate 14 16 Blood Pressure 177/78 H 186/89 H Pulse Oximetry 96 97 Intake & Output 09/21/18 09/22/18 09/22/18 18:59 06:59 18:59 Intake Total 250 / 250 240 / 240 Balance 250 / 250 240 / 240 Weight 70.307 kg Intake: IV 250 / 250 NS Inj 250 ML @ 500 mls/hr IV. 250 / 250 SIG BOLUS INDIRA Rx#:[id number] Oral 240 / 240 Other: # Voids 3 Date of Last Bowel Movement 09/20/18 09/20/18 09/20/18 Weight On Admission 70.307 kg Narrative: GENERAL: Well-nourished, well-developed pleasant elderly female patient in [facility]. SKIN: Warm and dry. No rash. HEENT: Normocephalic. Atraumatic. Pupils equal and round. Mucous membranes pink and moist. CARDIOVASCULAR: Regular rate and rhythm. 3/6 systolic murmur. RESPIRATORY: No accessory muscle use. Clear to auscultation. Breath sounds equal bilaterally. GASTROINTESTINAL: Abdomen soft, non-tender, nondistended. Normoactive bowel sounds x4. MUSCULOSKELETAL: No obvious deformities. Extremities without clubbing, cyanosis , or edema. Right upper extremity in sling, distal RUE neurovascularly intact. NEUROLOGICAL: Awake and alert. No obvious cranial nerve deficits. Motor grossly within normal limits. 5/5 right hand manager film strength, however 3/5 right shoulder strength and unable to lift the right arm above her head. Normal speech. PSYCHIATRIC: Appropriate mood and affect; insight and judgment normal. Results Labs CBC & Chem 7: 09/21/18 12:30 09/22/18 06:14 Imaging Imaging: Impressions Carotid Doppler Study 09/21/18 00:00 CONCLUSION: Moderate plaque in the carotid arteries bilaterally without evidence for hemodynamically significant stenosis. Cervical Spine CT 09/21/18 12:18 CONCLUSION: 1. Degenerative changes without fracture. 2. Controlled flexion-extension films may be of benefit given the amount of degenerative changes to exclude instability. Chest X-Ray 09/21/18 12:18 CONCLUSION: 1. No evidence of acute cardiopulmonary disease. 2. Dislocated right glenohumeral joint. Head CT 09/21/18 12:18 CONCLUSION: 1. Negative for acute traumatic injury. . . Shoulder X-Ray 09/21/18 12:18 CONCLUSION: Anteriorly dislocated glenohumeral joint. Shoulder X-Ray 09/21/18 14:09 CONCLUSION: Anatomic alignment. Assessment and Plan (1) Syncope: Code(s): R55 - Syncope and collapse Status: Acute Plan 83-year-old white female with a history of chronic systolic congestive heart failure, atrial fibrillation, hypertension, previous CVA with residual left manager film weakness and hand numbness presents to the ED after she had a syncopal episode injuring her right shoulder. She was found to have a right shoulder dislocation and was reduced in the emergency room. She stated that she drank 3 alcoholic drinks yesterday which is unusual for her and likely contributed to her passing out spell. Syncope: Suspect secondary to alcohol intake. Patient reports drinking 3 [place] alcoholic beverages prior to episode. -Head CT and cervical spine CT reviewed and unremarkable -CXR reviewed and unremarkable -Carotid ultrasound with moderate plaque, no significant stenosis -Monitor on telemetry -Checking echocardiogram, pending -Orthostatic vital signs negative -Given IV fluid hydration -Consult PT Paroxysmal atrial fibrillation: Chronic, currently normal sinus rhythm -continue digoxin, metoprolol and Xarelto -Monitor on telemetry -Continue outpatient follow-up with in home nanny Dr. Connell Hx of chronic systolic CHF: Does not appear to be in exacerbation. No signs of fluid overload. -Continue with metoprolol, lisinopril -cautious with hydration -Outpatient follow-up with cardiology Right shoulder dislocation: Acute, secondary to syncopal episode -status post reduction in emergency room -continue with sling and swath -follow with orthopedic surgery as an outpatient. -Continue pain control. Hypertension: Acute on chronic, BP not well controlled, likely exacerbated by pain -Continue lisinopril, metoprolol -Increase patient's lisinopril to 10 mg daily -Monitor BP, adjust antihypertensives as needed Elevated CPK: CPK 696, suspect secondary to fall after syncopal episode -Giving IV fluid hydration -Urinalysis unremarkable -Monitor for improvement DVT prophylaxison Xarelto Progress Note: Quality VTE Deep Vein Thrombosis/Pulmonary Embolism Present on Admission: No _ (1) Syncope Qualifiers: Encounter type: Syncope type:
--- NOTE | 2018-09-22 14:27 | ECG ---
Date Performed: 09/21/2018 Time Performed: 12:47:06 PTAGE: 83 years EKG: Sinus rhythm WITH OCCASIONAL SUPRAVENTRICULAR PREMATURE COMPLEXES MARKED RIGHT AXIS DEVIATION RIGHT BUNDLE BRANCH BLOCK ANTERIOR MYOCARDIAL INFARCTION ABNORMAL ECG WARNING: DATA QUALITY MAY AFFECT INTERPRETATION PREVIOUS TRACING : 10/15/2017 17.31 Since the previous tracing, no significant change not ed DOCTOR: Bon Jarquin Interpretating Date/Time 09/22/2018 14:21:55
--- NOTE | 2018-09-22 14:59 | ECHRPT ---
Indication: syncope CONCLUSIONS Normal left ventricular size. Wall thickness is normal. The left ventricular systolic function is hyperdynamic with an estimated ejection fraction in the ra nge of 65- 70%. Moderate mitral annular calcification. Mild to moderate mitral valve regurgitation. Mild thickening of the aortic valve leaflets. The estimated pulmonary arterial pressure is 52 mmHg. There is mild to moderate tricuspid valve regurgitation. BP: / HR: Rhythm: MEASUREMENTS (Male / Female) Normal Values Technical Quality: 2D ECHO LV Diastolic Diameter PLAX 5.0 cm 4.2 - 5.9 / 3.9 - 5.3 cm LV Systolic Diameter PLAX 3.2 cm IVS Diastolic Thickness 1.1 cm 0.6 - 1.0 / 0.6 - 0.9 cm LVPW Diastolic Thickness 1.1 cm 0.6 - 1.0 / 0.6 - 0.9 cm LV Relative Wall Thickness 0.4 RV Internal Dim ED PLAX 3.2 cm LVOT Diameter 1.8 cm Aortic Root Diameter 2.9 cm LA Systolic Diameter LX 4.5 cm 3.0 - 4.0 / 2.7 - 3.8 cm M-MODE Aortic Root Diameter MM 3.3 cm LA Systolic Diameter MM 5.3 cm LA Ao Ratio MM 1.6 AV Cusp Separation MM 1.9 cm DOPPLER AV Peak Velocity 216.5 cm/s AV Peak Gradient 18.7 mmHg AV Mean Gradient 8.0 mmHg AV Velocity Time Integral 49.7 cm LVOT Peak Velocity 106.0 cm/s LVOT Peak Gradient 4.5 mmHg LVOT Velocity Time Integral 22.9 cm AV Area Cont Eq vti 1.2 cm AV Area Cont Eq pk 1.2 cm Mitral E Point Velocity 107.0 cm/s Mitral A Point Velocity 105.0 cm/s Mitral E to A Ratio 1.0 LV E' Lateral Velocity 7.5 cm/s Mitral E to LV E' Lateral Ratio 14.2 LV E' Septal Velocity 4.3 cm/s Mitral E to LV E' Septal Ratio 24.9 TR Peak Velocity 323.0 cm/s TR Peak Gradient 41.7 mmHg Right Atrial Pressure 10.0 mmHg Pulmonary Artery Systolic Pressu 51.7 mmHg Right Ventricular Systolic Press 51.7 mmHg PV Peak Velocity 137.0 cm/s PV Peak Gradient 7.5 mmHg FINDINGS LEFT VENTRICLE Normal left ventricular size. Wall thickness is normal. The left ventricular systolic function is hyperdynamic with an estimated ejection fraction in the ra nge of 65- 70%. RIGHT VENTRICLE Normal right ventricular size and systolic function. LEFT ATRIUM The left atrial size is normal. RIGHT ATRIUM The right atrial size is normal. ATRIAL SEPTUM Normal atrial septal thickness without atrial level shunting by limited color doppler interrogation. AORTA The aortic root and proximal ascending aorta are normal in size on limited imaging. MITRAL VALVE Moderate thickening of the mitral valve leaflets. Moderate mitral annular calcification. Mild to moderate mitral valve regurgitation. No mitral valve stenosis. AORTIC VALVE Trileaflet aortic valve. No aortic valve stenosis or regurgitation. Mild thickening of the aortic valve leaflets. Aortic valve sclerosis is present. TRICUSPID VALVE The estimated pulmonary arterial pressure is 52 mmHg. There is mild to moderate tricuspid valve regurgitation. PULMONARY VALVE No pulmonary valve regurgitation or stenosis. VESSELS The inferior vena cava is normal in size. PERICARDIUM No pericardial effusion. Jacob Nunes (Electronically Signed) Final Date:22 September 2018 14:58
[2018-09-22] MEDS ORDERED: Lisinopril 5 MG Tablet PO ONE (15:00)
[2018-09-22] MEDS: Sod Chloride 0.9% Inj 1,000 ML IV.CONT SCH (16:33)
[2018-09-23 06:00] VITALS: O2SAT 97
[2018-09-23 07:57] LABS: Calcium 7.9 mg/dL (8.5-10.1); Carbon Dioxide 25.8 meq/L (21.0-32.0); Potassium 3.8 meq/L (3.5-5.1)
[2018-09-23] MEDS: Digoxin 125 MCG Tablet PO SCH (08:30)
[2018-09-23] MEDS: Metoprolol Tartrate 50 MG Tablet PO SCH (08:30)
[2018-09-23] MEDS: Rivaroxaban 15 MG Tablet PO SCH (08:30)
[2018-09-23 08:36] LABS: CKMB Percent 0.2 % (0.0-4.0); Creatine Kinase MB 2.4 ng/mL (0.5-3.6)
[2018-09-23] MEDS ORDERED: Lisinopril 10 MG Tablet PO SCH (09:00)
[2018-09-23] MEDS ORDERED: amLODIPine 5 MG Tablet PO SCH (09:00)
--- NOTE | 2018-09-23 11:09 | P.DS ---
DS: Providers Date of admission: 09/21/18 16:09 Primary care physician: No Primary Care Physician Anticipated date of discharge: 09/23/18 Brief History from admission: 83-year-old white female with a history of chronic systolic congestive heart failure, atrial fibrillation, hypertension, previous CVA with residual left economics consultant weakness and hand numbness presents to the emergency room after she had a syncope episode injuring her right shoulder. She was found to have a right shoulder dislocation and was reduced in the emergency room. She stated that she drank 3 alcoholic drinks yesterday which is unusual for her and was unsure if this contributed to her passing out spell. She reports the syncope episode was not witnessed. She does not know how long she was down. She denies any palpitations, dizziness, chest pain prior to the episode. She did not have any bladder or bowel incontinence. When she came to she was not confused. Due to the persistent right shoulder pain she came into the emergency room today for evaluation. She reports she takes anticoagulation Xarelto for her history of atrial fibrillation. She sees Dr. Connell and stated she had a nuclear stress test back in July that was normal. She reports having previous open heart surgery and states that the surgeon cannot fix a " valve problem" that she has. She cannot tell me the definitive valvular problems she has. Patient update on day of discharge: Follow-up for syncope, uncontrolled hypertension. The patient reports feeling better again today. She adamantly wants to go home today. She strongly believes that her syncopal episode was secondary to her alcohol intake. She does not plan to drink alcohol in the future. She has been out of bed, denies any lightheadedness or dizziness. Denies any chest pain or palpitations. BP has been elevated, discussed increasing her lisinopril dosing, patient verbalized understanding. Also discussed recommendations for home health care, patient initially declined this , however now agrees to at least one visit after discharge, then will decide whether or not to continue. Denies any other medical complaints at this time. DS: Diagnosis Discharge Diagnosis (1) Syncope: Status: Acute DS: Summary 83-year-old white female with a history of chronic systolic congestive heart failure, atrial fibrillation, hypertension, previous CVA with residual left economics consultant weakness and hand numbness presents to the ED after she had a syncopal episode injuring her right shoulder. She was found to have a right shoulder dislocation and was reduced in the emergency room. She stated that she drank 3 alcoholic drinks yesterday which is unusual for her and likely contributed to her passing out spell. Syncope: Suspect secondary to alcohol intake. Patient reports drinking 3 [place] alcoholic beverages prior to episode. Head CT and cervical spine CT reviewed and unremarkable. CXR reviewed and unremarkable. Carotid ultrasound with moderate plaque, no significant stenosis. Monitor on telemetry, no acute findings. Echocardiogram with EF 65-70%. Orthostatic vital signs negative. Given IV fluid hydration. Patient back to baseline. Consult PT, recommending rehab however patient adamantly declines, agrees to [facility]. Case management consulted. Paroxysmal atrial fibrillation: Chronic, currently normal sinus rhythm. Continue digoxin, metoprolol and Xarelto. Monitored on telemetry. Continue outpatient follow-up with agricultural commodities grader Dr. Becki Lucero of chronic systolic CHF: Does not appear to be in exacerbation. No signs of fluid overload. Continue with metoprolol, lisinopril. Outpatient follow-up with cardiology. Right shoulder dislocation: Acute, secondary to syncopal episode. Status post reduction in emergency room. Continue with sling and swath. Follow with orthopedics as an outpatient. Continue PT after discharge, [facility] arranged. Hypertension: Acute on chronic, BP not well controlled, likely exacerbated by pain. Continue lisinopril, metoprolol. Increase patient's lisinopril to 10 mg bid. BP improving. Outpatient f/up with PCP. Elevated CPK: CPK 696, suspect secondary to fall after syncopal episode. Giving IV fluid hydration. Urinalysis unremarkable. Patient denies any significant muscle aches or pains. She adamantly does not want to stay in the hospital for further IVF hydration, says she will continue oral hydration after discharge. Renal function and UA wnl. DVT prophylaxison Xarelto Time Spent with Patient Total time spent providing and/or coordinating discharge services: Greater than 30 minutes Quality: VTE Deep Vein Thrombosis/Pulmonary Embolism Present on Admission: No Exam Narrative Exam Narrative: GENERAL: Well-nourished, well-developed pleasant elderly female patient in NAD. SKIN: Warm and dry. No rash. HEENT: Normocephalic. Atraumatic. Pupils equal and round. Mucous membranes pink and moist. CARDIOVASCULAR: Regular rate and rhythm. 2/6 systolic murmur. RESPIRATORY: No accessory muscle use. Clear to auscultation. Breath sounds equal bilaterally. GASTROINTESTINAL: Abdomen soft, non-tender, nondistended. Normoactive bowel sounds x4. MUSCULOSKELETAL: No obvious deformities. Extremities without clubbing, cyanosis , or edema. Right upper extremity in sling, distal RUE neurovascularly intact. NEUROLOGICAL: Awake and alert. No obvious cranial nerve deficits. Motor grossly within normal limits. 5/5 right hand economics consultant strength, however 3/5 right shoulder strength and unable to lift the right arm above her head. Normal speech. PSYCHIATRIC: Appropriate mood and affect; insight and judgment normal. Results Labs on day of discharge: Labs from last 24 hours 09/23/18 05:36 Sodium 138 Potassium 3.8 Chloride 105 Carbon Dioxide 25.8 Anion Gap 7 BUN 21 H Creatinine 0.83 Estimated GFR 65 L Random Glucose 86 Calcium 7.9 L Total Creatine Kinase 1444 H CK-MB (CK-2) 2.4 CK-MB (CK-2) % 0.2 Impressions ITS Impressions Carotid Doppler Study 09/21/18 00:00 CONCLUSION: Moderate plaque in the carotid arteries bilaterally without evidence for hemodynamically significant stenosis. Cervical Spine CT 09/21/18 12:18 CONCLUSION: 1. Degenerative changes without fracture. 2. Controlled flexion-extension films may be of benefit given the amount of degenerative changes to exclude instability. Chest X-Ray 09/21/18 12:18 CONCLUSION: 1. No evidence of acute cardiopulmonary disease. 2. Dislocated right glenohumeral joint. Head CT 09/21/18 12:18 CONCLUSION: 1. Negative for acute traumatic injury. . . Shoulder X-Ray 09/21/18 14:09 CONCLUSION: Anatomic alignment. Discharge Plan Discharge Disposition Patient Disposition: Disch W/Home Health Service Discharge Condition Condition: Stable Discharge Order Discharge Orders: Discharge Order (Routine); Ordered 09/23/18 Ordered By: Mera Santos Discharge Details Anticipated Discharge Date: 09/23/18 Physicians Team ED Provider: Megan [facility] ED Midlevel Provider: Romaine Crandall Primary Care Provider: Primary Care Umm Friend Attending Provider: Alejandro Powell Rxs /Orders / Referrals /Forms Prescriptions: New lisinopril 10 mg Tablet 10 mg PO BID Qty: 60 RF: 0 Continue potassium chloride 20 mEq Packet 20 meq PO DAILY RF: 0 metoprolol tartrate 50 mg Tablet 50 mg PO BID RF: 0 digoxin 125 mcg Tablet 0.125 mg PO DAILY RF: 0 rivaroxaban [Xarelto] 20 mg Tablet 20 mg PO DAILY RF: 0 Discontinued lisinopril 2.5 mg Tablet 2.5 mg PO DAILY RF: 0 [facility] - See Instructions Primary Care Umm Friend [Primary Care Provider] - See Instructions Post Discharge Care Plan Care Plan Goals: Your Health Problems: Shoulder Dislocation Syncope Hypertension Goals to Promote Your Health: * To prevent worsening of your condition * To maintain your health at the optimal level Directions to Meet Your Goals: * Take your medications as prescribed * Follow your dietary instruction * Follow activity as directed * Keep your appointments as scheduled * Take your immunizations and boosters as scheduled * If your symptoms worsen call your PCP * If no PCP go to Urgent Care or Emergency Room Smoking is dangerous to your health. Avoid second hand smoke. You may reach the 24-hour crisis hotline for domestic abuse at . Status ED Status: Left Department Discharge Information Discharge Date/Time: 09/23/18 16:10
[2018-09-23 12:38] VITALS: BP 158/70; PULSE 64; RESP 16; TEMP 98.7
--- NOTE | 2018-09-23 14:06 | P.DCO ---
Diagnosis (1) Syncope: Status: Acute (2) Dislocation of shoulder: Status: Acute (3) Unsteady gait: Status: Acute Physical Therapy Order: Evaluate and treat, Improve ambulation and Strength and gait training Home Health Nursing Order: Medical education, Signs/symptoms of disease process and Nursing assessment with vital signs Home Health Aide Order: To assist in: Bathing and personal care and heading repairer and meal prep Case Management Consult Case Management Consult-Home Health: Yes I have seen patient Vianca An on 09/23/18. My clinical findings support the need for the requested home health care services because: Limited mobility due to disease progression, Deconditioned with increased weakness and Limited ability to care for self I certify that my clinical findings support that this patient is homebound because: Unsteady gait/balance, Unsafe to leave home unassisted and Unable to use public transportation _ (1) Syncope Qualifiers: Encounter type: Syncope type: (2) Dislocation of shoulder Qualifiers: Encounter type: Laterality:
== END 2018-09-23 16:10 | disposition home health service (06) ==
LOC: NEPE 11:08 → NEDA 11:08 → NEPHCDU 17:48
PROVIDERS: ADMIT Hospitalist; ATTEND Hospitalist
DX: I11.0 Hypertensive heart disease with heart failure; R74.8 Abnormal levels of other serum enzymes; W19.XXXA Unspecified fall, initial encounter; E78.5 Hyperlipidemia, unspecified; R55 Syncope and collapse; Z79.01 Long term (current) use of anticoagulants; M43.6 Torticollis; Z86.73 Personal history of transient ischemic attack (TIA), and cerebral infarction without residual deficits; Z79.899 Other long term (current) drug therapy; I48.0 Paroxysmal atrial fibrillation; I50.22 Chronic systolic (congestive) heart failure; I25.10 Atherosclerotic heart disease of native coronary artery without angina pectoris; I34.0 Nonrheumatic mitral (valve) insufficiency; I65.23 Occlusion and stenosis of bilateral carotid arteries; F10.129 Alcohol abuse with intoxication, unspecified; S43.004A Unspecified dislocation of right shoulder joint, initial encounter
CPT/HCPCS: 23650; 70450; 71010; 71045; 72125; 73030; 80048; 80162; 81001; 82550; 82552; 83735; 84484; 85025; 85610; 85730; 90774; 90775; 90784; 93005; 93306; 93880; 96374; 96375; 97162; 99285; C8952; G0378; G8987; G8988; J2270; J2405; J2704; J7030; J7050